=== PATIENT | female | born 1995 | race Caucasian/White ===

== ENCOUNTER 2017-01-06 03:23 | Emergency (ER) | payer OTHER ==
[~2017-01-06] VITALS: Ht 160 cm; Wt 77.6 kg
[~2017-01-06 03:23] MED LIST: AZIT250T6 PO; GUAI118L3 PO; GUAI600T47 PO; HYDR-971 PO; PHEN1PAC PO; nyquil
[2017-01-06] MEDS ORDERED: IV NORMAL SALINE 1,000ML 1,000 ML IV SCH (03:50)
--- NOTE | 2017-01-06 03:57 | PHYS DOC ---
Past History Past Medical History: No Pertinent History Past Surgical History: No Surgical History, Other Smoking: Non-smoker Alcohol Use: None Drug Use: None Adult General Chief Complaint Chief Complaint: [facility] HPI This patient is a pleasant 21-year-old female otherwise healthy with no major medical problems who noted right upper quadrant pain that began about a month ago after eating fatty foods. She is noted that this pain is gotten progressively worse and intermittent increasing frequency with fatty food consumption. Tonight this episode began 2 hours prior to arrival after eating some chicken that was earlier in the evening. She denies any vomiting but has had some nausea. She denies any diarrhea, trauma, urinary symptoms of dysuria urgency or frequency, denies any travel, denies any sick contacts at home with similar symptoms. She works in [place] and she has been exposed with sickness. She denies any fevers, chills or other symptoms. She denies any back pain. Pain is a dull 5/10 is increased with deep breathing and fatty foods. Differential diagnosis considered: Acute pancreatitis. Appendicitis. Acute hepatitis. Peptic ulcer disease. Nonulcer dyspepsia. Irritable bowel disease. Functional gallbladder disorder. Sphincter of Oddi dysfunction. Diseases of the right kidney. Right-sided pneumonia. Dyaq-Swqj-Mvwsxb syndrome Subhepatic or intraabdominal abscess. Perforated viscus. Cardiac ischemia. Black spider envenomation Review of Systems Review of Systems Constitutional: She does complain of subjective chills without documented fever Eyes: Denies change in visual acuity, redness, or eye pain [] HENT: Denies nasal congestion or sore throat [] Respiratory: Denies cough or shortness of breath [] Cardiovascular: No additional information not addressed in HPI [] GI: She does complain of nausea with abdominal pain but no vomiting or diarrhea : Denies dysuria or hematuria [] Musculoskeletal: Denies back pain or joint pain [] Integument: Denies rash or skin lesions [] Neurologic: Denies headache, focal weakness or sensory changes [] Endocrine: Denies polyuria or polydipsia [] Current Medications Current Medications Current Medications Medications (Trade) Dose Ordered Sig/Sun Start Time Stop Time Status Last Admin Dose Admin Hydromorphone HCl (Dilaudid) 1 mg PRN Q15MIN PRN 01/06/17 04:00 01/07/17 03:59 Ondansetron HCl (Zofran) 4 mg 1X ONCE 01/06/17 04:00 01/06/17 04:01 UNV Sodium Chloride (Normal Saline Flush) 10 ml QSHIFT PRN 01/06/17 04:00 Allergies Allergies Allergies Coded Allergies Type Severity Reaction Last Updated Verified No Known Drug Allergies 12/03/15 No Physical Exam Physical Exam Constitutional: Well developed, well nourished, no acute distress, non-toxic appearance. [] Cardiovascular:Heart rate regular rhythm, no murmur [] Lungs & Thorax: Bilateral breath sounds clear to auscultation [] Abdomen: Bowel sounds normal, soft, she does exhibit some tenderness in the right upper quadrant but clearly no Eaton's or McBurney's point tenderness palpation no Urena Asnchez sign. Skin: Warm, dry, no erythema, no rash. [] Back: No tenderness, no CVA tenderness. [] Extremities: No tenderness, no cyanosis, no clubbing, ROM intact, no edema. [] Neurologic: Alert and oriented X 3, normal motor function, normal sensory function, no focal deficits noted. [] Psychologic: Affect normal, judgement normal, mood normal. [] Current Patient Data Lab Results Laboratory Tests Test 01/06/17 03:40 01/06/17 04:00 01/06/17 04:12 Urine Collection Type Unknown Urine Color Yellow Urine Clarity Hazy Urine pH 5.5 Urine Specific [place] 1.025 Urine Protein Neg (NEG-TRACE) Urine Glucose (UA) Neg mg/dL (NEG) Urine Ketones (Stick) Neg mg/dL (NEG) Urine Blood Trace (NEG) Urine Nitrite Neg (NEG) Urine Bilirubin Neg (NEG) Urine Urobilinogen Dipstick 0.2 mg/dL (0.2 mg/dL) Urine Leukocyte Esterase Small (NEG) Urine RBC 0 /HPF (0-2) Urine WBC 5-10 /HPF (0-4) Urine Squamous Epithelial Cells Many /LPF Urine Bacteria Few /HPF (0-FEW) White Blood Count 12.6 x10^3/uL (4.0-11.0) H Red Blood Count 4.96 x10^6/uL (3.50-5.40) Hemoglobin 12.9 g/dL (12.0-15.5) Hematocrit 38.6 % (36.0-47.0) Mean Corpuscular Volume 78 fL (79-100) L Mean Corpuscular Hemoglobin 26 pg (25-35) Mean Corpuscular Hemoglobin Concent 33 g/dL (31-37) Red Cell Distribution Width 13.9 % (11.5-14.5) Platelet Count 251 x10^3/uL (140-400) Neutrophils (%) (Auto) 77 % (31-73) H Lymphocytes (%) (Auto) 14 % (24-48) L Monocytes (%) (Auto) 5 % (0-9) Eosinophils (%) (Auto) 4 % (0-3) H Basophils (%) (Auto) 1 % (0-3) Neutrophils # (Auto) 9.7 x10^3uL (1.8-7.7) H Lymphocytes # (Auto) 1.8 x10^3/uL (1.0-4.8) Monocytes # (Auto) 0.7 x10^3/uL (0.0-1.1) Eosinophils # (Auto) 0.4 x10^3/uL (0.0-0.7) Basophils # (Auto) 0.1 x10^3/uL (0.0-0.2) Sodium Level 138 mmol/L (136-145) Potassium Level 3.9 mmol/L (3.5-5.1) Chloride Level 104 mmol/L (98-107) Carbon Dioxide Level 24 mmol/L (21-32) Anion Gap 10 (6-14) Blood Urea Nitrogen 15 mg/dL (7-20) Creatinine 0.7 mg/dL (0.6-1.0) Estimated GFR (Cockcroft-Gault) 106.7 BUN/Creatinine Ratio 21 (6-20) H Glucose Level 107 mg/dL (70-99) H Calcium Level 8.7 mg/dL (8.5-10.1) Total Bilirubin 0.3 mg/dL (0.2-1.0) Aspartate Amino Transferase (AST) 35 U/L (15-37) Alanine Aminotransferase (ALT) 72 U/L (14-59) H Alkaline Phosphatase 84 U/L (46-116) Total Protein 7.1 g/dL (6.4-8.2) Albumin 3.6 g/dL (3.4-5.0) Albumin/Globulin Ratio 1.0 (1.0-1.7) Lipase 124 U/L (73-393) POC Urine HCG, Qualitative hcg negative (Negative) EKG EKG [] Radiology/Procedures Radiology/Procedures [] Ultrasound report by the rehabilitation therapy technician who did the initial study demonstrates a gallbladder wall is thickened at 3.8 mm which is borderline. She had no sonographic Etaon's reported but she demonstrated cholelithiasis and biliary sludge. Course & Med Decision Making Course & Med Decision Making Pertinent Labs and Imaging studies reviewed. (See chart for details) presents with right upper quadrant abdominal pain differential diagnosis includes but not limited to possible kidney stone, pyonephritis, small bowel obstruction, peptic ulcer disease,, gastritis, infectious gastritis, irritable bowel disease, regional enteritis, trauma, rib fracture, right lower lung infiltrate or pneumonia, cholelithiasis, cholecystitis, ascending cholangitis, pancreatitis, or possibly biliary colic or gas pain. Evaluate the symptoms we will complete a CBC, CMP, lipase, right upper quadrant ultrasound, urine test and urinalysis. She'll be given fluids, pain meds and antiemetics as he is waiting for these tests. Time is now 4:30 and patient is going for ultrasound..Patient tells me that their symptoms given during CC are improved her pain is still present. Her white blood cell count is elevated at 12.6 with a left shift. Her LFTs are still pending. Her boyfriend is not the bedside. Time now is 5:18 a.m. and the patient is still having right upper quadrant abdominal pain although since there is no sonographic Eaton sign on the ultrasound patient did have a borderline gallbladder wall thickening 3.8 mm with lithiasis and biliary sludge. My concern is with her increased white count as well as left shift with mild elevation in AST she might be developing cholecystitis. I will call general surgery on-call to see the going to accept her and do an outpatient surgery to remove her gallbladder later today. Template Fitter note: Gen. surgery services Template Fitter called at of the service called initially at 5:18 AM Consult called back at 5:33 AM Discussed the case I presented and they agreed with admission. Time of acceptance 5:33 AM asked me to admit patient to hospitalist service Dr. Peralta she agreed with IV antibiotics keeping the patient nothing by mouth and she'll take her to the OR later today for removal of her gallbladder. Template Fitter note: Medicine professional services specialist called at of the service Dr. Peralta paged initially at 5:34 AM Consult called back at Discussed the case I presented and they agreed with admission. Time of acceptance 5:38 AM. [] Impression: Abdominal pain, elevated white count, elevated ALTs, possible cholecystitis indurated biliary sludge and lithiasis. Disposition: Transferred to [facility] under the care of internal medicine Dr. Peralta and seeing the general surgeon Dr. Konrad Peterson Disclaimer Nicholas Disclaimer This chart was dictated in whole or in part using Voice Recognition software in a busy, high-work load, and often noisy Emergency Department environment. It may contain unintended and wholly unrecognized errors or omissions. Departure Departure: Impression: Primary Impression: Abdominal pain Additional Impression: Cholelithiasis Disposition: 02 XFER SHT-TRM HOSP Condition: GUARDED Referrals: PCP,NO (PCP) Problem Qualifiers TRINITY JENNINGS MD Jan 06, 2017 03:57
[2017-01-06] MEDS ORDERED: 0.9 % SODIUM CHLORIDE 10 ML DISP.SYRIN. IV PRN (04:00)
[2017-01-06] MEDS ORDERED: HYDROmorphone PF 1 MG/ML DISP.SYRIN IV/SQ PRN (04:00)
[2017-01-06] MEDS ORDERED: ONDANSETRON PF 4 MG/2 ML VIAL. IV ONE (04:15)
[2017-01-06 04:16] LABS: BASO # 0.1 x10^3/uL (0.0-0.2); BASO % 1 % (0-3); EOS # 0.4 x10^3/uL (0.0-0.7); EOS % 4 % (0-3); HEMATOCRIT 38.6 % (36.0-47.0); HEMOGLOBIN 12.9 g/dL (12.0-15.5); LYMPH # 1.8 x10^3/uL (1.0-4.8); LYMPH % 14 % (24-48); MEAN CORPUSCULAR HEMOGLOBIN 26 pg (25-35); MEAN CORPUSCULAR HGB CONC 33 g/dL (31-37); MEAN CORPUSCULAR VOLUME 78 fL (79-100); MONO # 0.7 x10^3/uL (0.0-1.1); MONO % 5 % (0-9); NEUT # 9.7 x10^3uL (1.8-7.7); NEUT % 77 % (31-73); PLATELET COUNT 251 x10^3/uL (140-400); RED BLOOD COUNT 4.96 x10^6/uL (3.50-5.40); RED CELL DISTRIBUTION WIDTH 13.9 % (11.5-14.5); WHITE BLOOD COUNT 12.6 x10^3/uL (4.0-11.0)
[2017-01-06 04:31] LABS: COLOR,URINE YELLOW
[2017-01-06 04:32] LABS: BACTERIA,URINE FEW /HPF (0-FEW); BILIRUBIN,URINE NEG (NEG); CLARITY,URINE HAZY; GLUCOSE,URINE NEG (NEG); NITRITE,URINE NEG (NEG); RBC,URINE 0 /HPF (0-2); SQUAMOUS EPITHELIAL CELL,UR MANY /LPF; UROBILINOGEN,URINE 0.2 mg/dL (0.2 mg/dL)
[2017-01-06 04:46] LABS: ALBUMIN 3.6 g/dL (3.4-5.0); CALCIUM 8.7 mg/dL (8.5-10.1); CREATININE 0.7 mg/dL (0.6-1.0); GFR 106.7; POTASSIUM 3.9 mmol/L (3.5-5.1); TOTAL BILIRUBIN 0.3 mg/dL (0.2-1.0); TOTAL PROTEIN 7.1 g/dL (6.4-8.2)
[2017-01-06] MEDS ORDERED: PIPERACILLIN/TAZOBACTAM 3.375 GM VIAL IV ONE (05:47)
[2017-01-06] MEDS ORDERED: IV NORMAL SALINE 50ML 50 ML ONE (05:47)
--- NOTE | 2017-01-06 05:50 | RAD ---
EXAM: ABDOMEN LTD HISTORY: ruq pain [id number] COMPARISON: None. TECHNIQUE: Transverse and longitudinal sonography of the right upper quadrant is performed. FINDINGS: The visualized proximal and mid pancreas demonstrates no focal abnormality. Distal pancreas is obscured by overlying bowel gas. IVC is documented. Liver demonstrates normal contour and echogenicity. Main portal vein demonstrates normal directional flow. Liver measures 16.2 cm. The gallbladder appears to measure up to 9.2 cm in length. Internal echogenic material consistent with sludge is present, as well as a posterior shadowing gallstone within the neck of the gallbladder. Gallbladder wall thickness measures 4 mm. No pericholecystic fluid is seen. The calcified gallstone appears to move to within the fundal region when placed in the left lateral decubitus position. Common bile duct measures 5 mm in diameter. Right kidney measures 10.2 x 5.2 x 5.1 cm, without evidence of hydronephrosis. No free fluid is seen within the provided images. IMPRESSION: Sonographic findings suggestive of acute cholecystitis, with a mobile stone and sludge present along with wall thickening. Electronically signed by: Kim Vora MD (01/06/2017 5:46 AM)
[2017-01-06] MEDS ORDERED: PIPERACILLIN/TAZOBACTAM 3.375 GM in IV NORMAL SALINE 50ML 50 ML IV ONE (06:00)
[2017-01-06 06:22] VITALS: BP 116/54
== END 2017-01-06 07:43 | disposition short-term general hospital (02) ==
LOC: ER 03:23
DX: K80.20 Calculus of gallbladder without cholecystitis without obstruction (principal)
CPT/HCPCS: 36415; 76705; 80053; 81001; 81025; 83690; 85027; 87086; 96361; 96365; 96375; 99285; J1170; J2405; J2543; J7030

== ENCOUNTER 2017-05-13 19:33 | Emergency (ER) | payer BC, OTHER ==
[~2017-05-13] VITALS: Ht 162.6 cm; Wt 88.9 kg
[2017-05-13] MEDS ORDERED: cefTRIAXone IM 250 MG VIAL IM ONE ×2 (21:34→21:45)
[2017-05-13] MEDS ORDERED: AZITHROMYCIN 250 MG TABLET. ONE (21:35)
[2017-05-13] MEDS ORDERED: NAPROXEN 500 MG TABLET ONE (21:35)
[2017-05-13] MEDS ORDERED: NAPROXEN 500 MG TABLET PO ONE (21:45)
[2017-05-13] MEDS ORDERED: AZITHROMYCIN 250 MG TABLET. PO ONE (21:45)
[2017-05-13 21:54] LABS: CLARITY,URINE TURBID; COLOR,URINE RED; GLUCOSE,URINE NEG (NEG)
[2017-05-13 21:55] LABS: BILIRUBIN,URINE NEG (NEG)
[2017-05-13 21:56] LABS: NITRITE,URINE NEG (NEG); UROBILINOGEN,URINE 0.2 mg/dL (0.2 mg/dL)
[2017-05-13 21:57] LABS: RBC,URINE >40 /HPF (0-2)
[2017-05-13 21:58] LABS: BACTERIA,URINE FEW /HPF (0-FEW); SQUAMOUS EPITHELIAL CELL,UR FEW /LPF
--- NOTE | 2017-05-13 23:29 | ED.ADGEN ---
Past History Past Medical History: No Pertinent History Past Surgical History: No Surgical History, Other Smoking: Non-smoker Alcohol Use: None Drug Use: None Adult General HPI HPI Patient is a 21-year-old woman, with no significant past oral history, who presents emergency Department with complaint of vaginal pain. Patient states the pain began on Friday. She describes it is located in the lower area of the vagina, with radiation up towards her abdomen. She denies any abdominal pain, any nausea or vomiting, any fevers or chills, any discharge or drainage, any urinary complaints. Denies any possibility of , but states she was last sexually active on , states she does not use barrier protection, or control. She denies any concerns for STI exposures, has a single partner. No back or flank pain, no weakness, numbness, tingling, rashes or lesions. She states that she doesn't primary care provider but has not had regular pelvic examinations. Review of Systems Review of Systems Constitutional: Denies fever or chills [] Eyes: Denies change in visual acuity, redness, or eye pain [] HENT: Denies nasal congestion or sore throat [] Respiratory: Denies cough or shortness of breath [] Cardiovascular: No additional information not addressed in HPI [] GI: Denies abdominal pain, nausea, vomiting, bloody stools or diarrhea [] : Denies dysuria or hematuria , complaining of []vaginal pain. Musculoskeletal: Denies back pain or joint pain [] Integument: Denies rash or skin lesions [] Neurologic: Denies headache, focal weakness or sensory changes [] Endocrine: Denies polyuria or polydipsia [] Current Medications Current Medications Current Medications Medications (Trade) Dose Ordered Sig/Sun Start Time Stop Time Status Last Admin Dose Admin Azithromycin (Zithromax) 250 mg STK-MED ONCE 05/13/17 21:35 05/13/17 21:36 DC Ceftriaxone Sodium (Rocephin Im) 250 mg STK-MED ONCE 05/13/17 21:34 05/13/17 21:35 DC Naproxen (Naprosyn) 500 mg STK-MED ONCE 05/13/17 21:35 05/13/17 21:36 DC Allergies Allergies Allergies Coded Allergies Type Severity Reaction Last Updated Verified No Known Drug Allergies 12/03/15 No Physical Exam Physical Exam Constitutional: Well developed, well nourished, no acute distress, non-toxic appearance. [] HENT: Normocephalic, atraumatic, bilateral external ears normal, oropharynx moist, no oral exudates, nose normal. [] Eyes: PERRLA, EOMI, conjunctiva normal, no discharge. [] Neck: Normal range of motion, no tenderness, supple, no stridor. [] Cardiovascular:Heart rate regular rhythm, no murmur, S1, S2, no rubs or gallops. [] Lungs & Thorax: Bilateral breath sounds clear to auscultation, no wheezing, rhonchi, rales. No chest wall crepitus or tenderness. Abdomen: Bowel sounds normal, soft, mild tenderness palpation in the suprapubic region, no masses, no pulsatile masses.No rebound, rigidity, no guarding, [] [] Skin: Warm, dry, no erythema, no rash. [] Back: No tenderness, no CVA tenderness. [] Extremities: No tenderness, no cyanosis, no clubbing, ROM intact, no edema. [] Neurologic: Alert and oriented X 3, normal motor function, normal sensory function, no focal deficits noted. [] Psychologic: Affect normal, judgement normal, mood normal. [] Pelvic examination: Patient with normal-appearing external examination. Patient points to the left lower labia minora as the location of her discomfort, however she has no discomfort when I palpate this region, no masses identified, no lymphadenopathy, no lesions or other concerning findings. Normal external examination. Bimanual examination reveals very mild CMT, with a moderate amount of white discharge in a small of blood noted on glove. No adnexal masses or tenderness identified. Speculum examination reveals a slightly friable cervix, with large amounts of yellow-white vaginal discharge, and a small amount of bright red blood. No clots or tissue identified. Current Patient Data Lab Results Laboratory Tests Test 05/13/17 21:10 05/13/17 21:31 Urine Collection Type Unknown Urine Color Red Urine Clarity Turbid Urine pH 5.5 Urine Specific [place] <=1.005 Urine Protein 100 mg/dl (NEG-TRACE) Urine Glucose (UA) Neg mg/dL (NEG) Urine Ketones (Stick) Neg mg/dL (NEG) Urine Blood Large (NEG) Urine Nitrite Neg (NEG) Urine Bilirubin Neg (NEG) Urine Urobilinogen Dipstick 0.2 mg/dL (0.2 mg/dL) Urine Leukocyte Esterase Small (NEG) Urine RBC >40 /HPF (0-2) Urine WBC 11-20 /HPF (0-4) Urine Squamous Epithelial Cells Few /LPF Urine Bacteria Few /HPF (0-FEW) POC Urine HCG, Qualitative hcg negative (Negative) Microbiology 05/13/17 Wet Prep - Final, Complete EKG EKG Not indicated.[] Radiology/Procedures Radiology/Procedures Not indicated.[] Course & Med Decision Making Course & Med Decision Making Pertinent Labs and Imaging studies reviewed. (See chart for details) Patient noted to have some gross blood in urine, she states she did not previously have hematuria, denies any urinary complaints, any flank pain, is noted to have bloody discharge from vagina on examination, she states she did not blood or vaginal discharge previously. I did discuss with patient that her findings are concerning for possible cervicitis, due to sexual transmitted disease. As noted, patient does not have any flank pain, back pain, fever, significant abdominal tenderness or other concerning findings at this time. We did discuss proceeding with additional evaluation, at this time due to her lack of other symptoms, patient is agreeable to receiving ceftriaxone and azithromycin in the ED, with cultures pending, and following up with her doctor for a full complement of STI testing and a full pelvic examination. Patient did receive ceftriaxone and azithromycin in the ED without issue, along with naproxen. Patient ambulating without difficulty, urinalysis reveals some bacteria, and blood, but no nitrates or significant leukoesterase. No indication for initiating other antibiotics or treatment at this time. We did discuss concerning symptoms that prompt return to the emergency department, the patient be contacted via telephone if culture results require follow-up. I discussed also with patient the importance of practicing safe sex, and discussing with her doctor potential forms of control if she does not wish to become in the near future. Patient voiced understanding and agreement with instructions, plan for follow-up, and precautions, discharged home in stable condition with plan as above. Final Impression Final Impression [] Problems: Dragon Disclaimer Dragon Disclaimer This electronic medical record was generated, in whole or in part, using a voice recognition dictation system. Departure: Impression: Primary Impression: Cervicitis Disposition: 01 HOME, SELF-CARE Condition: IMPROVED MENA NAYLOR DO May 13, 2017 23:29
[2017-05-15 15:08] LABS: CHLAMYDIA PROBE Negative (Negative)
== END 2017-05-13 22:28 | disposition home or self-care (01) ==
LOC: ER 19:33
DX: N72 Inflammatory disease of cervix uteri (principal)
CPT/HCPCS: 36415; 81001; 81025; 87491; 87591; 96372; 99284; J0456; J0696; Q0111

== ENCOUNTER 2021-09-19 20:04 | Emergency (ER) | payer BC, OTHER ==
[~2021-09-19] VITALS: Ht 162.6 cm; Wt 100.5 kg
[~2021-09-19 20:04] MED LIST changes: +HYDR-3165 PO; -HYDR-971 PO
[2021-09-19] MEDS ORDERED: ACETAMINOPHEN 500 MG TABLET PO ONE (20:15)
--- NOTE | 2021-09-19 20:21 | PHYS DOC ---
Past History Past Medical History: No Pertinent History Past Surgical History: No Surgical History, Other Smoking: Non-smoker Alcohol Use: None Drug Use: None Adult General HPI HPI Patient is a 25-year-old female presents with a chief complaint of left lower quadrant stabbing pain, 7 out of 10, sharp in nature that started earlier today. States he had anything like this before. Denies any recent travels, traumas, illness, fevers, chest pain, shortness of breath, other abdominal pain, nausea, vomiting, diarrhea. Review of Systems Review of Systems Review of systems otherwise unremarkable except noted in HPI Allergies Allergies Allergies Coded Allergies Type Severity Reaction Last Updated Verified No Known Drug Allergies 12/03/15 No Physical Exam Physical Exam Constitutional: Well developed, well nourished, no acute distress, non-toxic appearance. [] HENT: Normocephalic, atraumatic, oropharynx moist, no oral exudates, nose normal. [] Eyes: conjunctiva normal, no discharge. [] Neck: Normal range of motion, no tenderness, supple, no stridor. [] Cardiovascular:Heart rate regular rhythm, no murmur [] Lungs & Thorax: Bilateral breath sounds clear to auscultation [] Abdomen: soft, mild tenderness in the left lower quadrant with no rebound or guarding,, no masses, no pulsatile masses. [] Skin: Warm, dry, no erythema, no rash. [] Back: no CVA tenderness. [] Extremities: No tenderness, no cyanosis, no clubbing, ROM intact, no edema. [] Neurologic: Alert and oriented X 3, no focal deficits noted. [] Psychologic: Affect normal, judgement normal, mood normal. [] EKG EKG [] Radiology/Procedures Radiology/Procedures [] Heart Score C/O Chest Pain: No Risk Factors: Risk Factors: DM, Current or recent (<one month) smoker, HTN, HLP, family history of CAD, obesity. Risk Scores: Risk Factors: DM, Current or recent (<one month) smoker, HTN, HLP, family history of CAD, obesity. Course & Med Decision Making Course & Med Decision Making Patient is a 25-year-old female who presents with left lower quadrant stabbing pain Vital signs not concerning. Physical exam noted above. Given pain medicine. Urinalysis suggestive of urinary tract infection. Started on antibiotics in the ED. CT of the abdomen pelvis suggestive of either passed kidney stone or Brain nephritis/UTI Ultrasound showing left ovarian cysts. Discussed all findings with patient and family Discussed symptom treatment at home. Advised to follow-up in the morning with primary care physician Gave return precautions to the ED. Patient grateful, verbalized understanding and agreed with plan of discharge [] Dragon Disclaimer Dragon Disclaimer This electronic medical record was generated, in whole or in part, using a voice recognition dictation system. Departure Departure: Impression: Primary Impression: Pyelonephritis Additional Impression: Ovarian anomaly Disposition: HOME / SELF CARE / HOMELESS Condition: STABLE Referrals: PCP,NO (PCP) PRADIP SCHROEDER Patient Instructions: Ovarian Cyst, Pyelonephritis, Adult Additional Instructions: Thank you for coming into the emergency department tonight and allowing us to take care of you. Please read the attached information carefully over things we discussed. Considerations given your symptoms and imaging are a passed kidney stone and or a urinary tract infection that involves your kidney called pyelonephritis. Your urine was negative you also have a small lesion in your left ovary, and common things such as ovarian cyst are likely. It is important you follow-up in the morning with your primary care physician or your [facility] to discuss your ED visit and set up an outpatient ultrasound. You can continue Tylenol, ibuprofen and Benadryl every 6-8 hours as needed. You can use ice and heat as well. Please be sure to take your antibiotics as prescribed and until gone. Please come back with new or concerning symptoms as we discussed. Problem Qualifiers HILARY HORNER MD Sep 19, 2021 20:21
[2021-09-19 21:15] LABS: CLARITY,URINE HAZY; COLOR,URINE YELLOW; GLUCOSE,URINE NEG (NEG); NITRITE,URINE NEG (NEG); UROBILINOGEN,URINE 0.2 mg/dL (0.2 mg/dL)
[2021-09-19 21:16] LABS: BACTERIA,URINE MANY /HPF (0-FEW); SQUAMOUS EPITHELIAL CELL,UR FEW /LPF; WBC,URINE >40 /HPF (0-4)
--- NOTE | 2021-09-19 21:56 | RAD ---
INDICATION: Reason: LLQ pain / Spl. Instructions: / History: COMPARISON: Ultrasound December 2016 TECHNIQUE: Axial CT images were obtained through the abdomen and pelvis without intravenous contrast. One or more of the following individualized dose reduction techniques were utilized for this examinat ion: 1. Automated exposure control; 2. Adjustment of the mA and/or kV according to patient size; 3 . Use of iterative reconstruction technique. FINDINGS: Vascular: No abdominal aortic aneurysm. Hepatobiliary: Postcholecystectomy changes. Pancreas: No peripancreatic edema. Spleen: Spleen is enlarged. Renal/Bladder: Mild left-sided hydronephrosis and hydroureter with some haziness in the fat adjacent to the left ureter. There is some fullness of the left adnexa. Wall thickening of the urinary bladder with adjacent edema in the fat. No right-sided hydronephrosis. Gastrointestinal: Fat-containing umbilical hernia. Portion of the appendix is prominent in size measu ring up to about 6 mm without adjacent inflammatory changes therefore this does not fulfill all of th e criteria for appendicitis. There are some prominent lymph nodes seen scattered throughout the mesen ying. IMPRESSION: * Mild left-sided hydronephrosis and hydroureter with some haziness to the adjacent fat. Differenti al considerations would include recently passed ureter stone or urinary tract infection. There is als o some wall thickening the urinary bladder with adjacent haziness to the fat. Could be from causes kelley ch as cystitis. * Fullness of the left adnexa. A left ovarian lesion is not excluded given this finding and if furth er information is needed follow-up ultrasound could be obtained to better assess. Electronically signed by: Kvng Goldman MD (09/19/2021 9:53 PM) [id number]
[2021-09-19] MEDS ORDERED: cefTRIAXone SODIUM 1 GM VIAL ONE (22:21)
[2021-09-19] MEDS ORDERED: IV NORMAL SALINE 50ML 50 ML ONE (22:21)
[2021-09-19] MEDS ORDERED: IBUPROFEN 600 MG TABLET. PO ONE (23:00)
[2021-09-20] MEDS ORDERED: cefTRIAXone IM 1 GM VIAL IM ONE (00:30)
[2021-09-20] MEDS ORDERED: CEPH500C PO (00:45)
[2021-09-20 00:53] VITALS: BP 136/72
--- NOTE | 2021-09-20 01:14 | RAD ---
EXAMINATION: US TRANSVAGINAL INDICATION: 25 years, Female, left ovarian mass seen on CT exam. Further evaluation. COMPARISON: CT abdomen and pelvis dated 09/19/2021 TECHNIQUE: Transvaginal ultrasound of the pelvis was performed with grayscale, spectral, and color do ppler imaging. FINDINGS: UTERUS: Position: Anteverted Measures: 8.8 x 4.7 cm. Uterine/Endometrial Morphology: Nabothian cyst. Endometrial Thickness: 1.7 mm, within upper limits of normal for premenopausal woman. RIGHT OVARY/ADNEXA: Measures: 3.1 x 1.7 x 1.8 cm. Ovarian Morphology: Subcentimeter peripheral location follicular changes. Ovarian Color And Spectral Doppler Flow: Normal. LEFT OVARY/ADNEXA: Measures: 3.8 x 1.8 x 2.2 cm. Ovarian Morphology: Subcentimeter peripheral location follicular changes. Ovarian Color And Spectral Doppler Flow: Normal. OTHER: Fluid/Cul-De-Sac: None. IMPRESSION: Polycystic appearance of the ovaries, without suspicious adnexal masses. Clinical correlation is advi sed. Electronically signed by: Capo Schmitz MD (09/20/2021 1:12 AM) [facility]
== END 2021-09-20 00:55 | disposition home or self-care (01) ==
LOC: ER 20:04
DX: N12 Tubulo-interstitial nephritis, not specified as acute or chronic (principal); Q50.39 Other congenital malformation of ovary
CPT/HCPCS: 36415; 74176; 76830; 81001; 81025; 87077; 87086; 87186; 87491; 87591; 96372; 99284; J0696